=== PATIENT | female | born 1970 | race Caucasian/White ===

== ENCOUNTER → 2023-07-20 12:37 | Outpatient (REF) | payer OTHER, BC, SELFPAY | LOC: WDC 12:37 | PROVIDERS: ATTENDING PHYSICIAN Obstetrics & Gynecology; FAMILY PHYSICIAN Emergency Medicine | DX: N64.4 Mastodynia (principal); Z12.31 Encounter for screening mammogram for malignant neoplasm of breast | CPT/HCPCS: 77062; 77066 ==

== ENCOUNTER → 2023-09-22 12:43 | Outpatient (REF) | payer OTHER, BC, SELFPAY | LOC: HWEVLT 12:43 | PROVIDERS: ATTENDING PHYSICIAN Radiology Diagnostic Radiology | DX: I83.891 Varicose veins of right lower extremity with other complications (principal) | CPT/HCPCS: 93971 ==

== ENCOUNTER → 2024-07-21 15:15 | Outpatient (REF) | payer BC, OTHER, SELFPAY | LOC: WDC 15:15 | PROVIDERS: ATTENDING PHYSICIAN Obstetrics & Gynecology; FAMILY PHYSICIAN Emergency Medicine | DX: Z12.31 Encounter for screening mammogram for malignant neoplasm of breast (principal) | CPT/HCPCS: 77063; 77067 ==